=== PATIENT | female | born 1970 | race Caucasian/White ===

== ENCOUNTER 2017-02-15 18:32 | Emergency (ER) | payer OTHER | END 2017-02-15 19:25 | disposition home or self-care (01) | LOC: ER1 18:32 | DX: S00.522A Blister (nonthermal) of oral cavity, initial encounter (principal); X58.XXXA Exposure to other specified factors, initial encounter; Y93.89 Activity, other specified | CPT/HCPCS: 99282 ==

== ENCOUNTER 2021-02-20 21:07 | Emergency (ER) | payer OTHER ==
[~2021-02-20 21:07] MED LIST: ZOFRAN ODT 4 MG4 MG PO
[2021-02-20 22:32] LABS: HEMOGLOBIN 13.6 gm/dl (12.3-15.3); RED BLOOD COUNT 4.6 M/UL (4.00-5.10); WHITE BLOOD COUNT 8.5 K/UL (4.5-11.0)
[2021-02-20 22:59] LABS: BUN/CREATININE RATIO 16 (0-10)
== END 2021-02-21 03:51 | disposition home or self-care (01) ==
LOC: ER1 21:07
PROVIDERS: Physician Assistant
DX: R07.2 Precordial pain (principal); M79.602 Pain in left arm
CPT/HCPCS: 71045; 80053; 82550; 82553; 83874; 84484; 85025; 85610; 85730; 93005; 99285

== ENCOUNTER → 2021-03-29 | Outpatient (CLI) | payer OTHER | LOC: MAMO 03-07 14:00 | DX: Z12.31 Encounter for screening mammogram for malignant neoplasm of breast (principal) | CPT/HCPCS: 77063; 77067 ==